=== PATIENT | female | born 1980 | race Caucasian/White ===

== ENCOUNTER 2019-02-17 14:09 | Emergency (ER) | payer SELFPAY ==
--- NOTE | 2019-02-17 15:21 | EDM.PDOC ---
ED HPI GENERAL MEDICAL PROBLEM - General Chief Complaint: Skin Complaint Stated Complaint: INURED RIBS, BLISTERS/RASH Time Seen by Provider: 02/17/19 14:44 Source of Information: Reports: Patient History Limitations: Reports: No Limitations - History of Present Illness INITIAL COMMENTS - FREE TEXT/NARRATIVE: 38-year-old female presents to the ED with a severe painful rash on her right flank which radiates around underneath her right breast to the midline of her chest. States that she fell over a week ago and injured her right lateral ribs and thought this was probably the cause of the pain. However she appreciated the development of a red blister type rash about 4 days ago in her right flank and radiating around to the right chest. Pain is sharp stabbing and burning and is rated as 8 out of 10. Pain is constant and interfering with her sleep. Rash is now losing through her clothing and she is unable to wear her bra at all. She does remember having the chickenpox as a youngster. She reports having pain in her right flank and ribs for about follow 4-5 days before she developed the rash. Onset: Sudden Onset Date: 02/14/19 Duration: Day(s):, Constant, Getting Worse Location: Reports: Chest (Right flank under her right breast to the midline of the chest with blister type rash and severe pain), Back Quality: Reports: Ache, Burning, Stabbing Severity: Severe Improves with: Reports: None (8-9 out of 10) Worsens with: Reports: Other (Certain movements and touch makes it much worse.) Context: Denies: Activity, Exercise, Lifting, Sick Contact, Trauma Associated Symptoms: Reports: Chest Pain, Loss of Appetite, Malaise, Other ( Disrupted sleep due to the constant pain.). 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, NSAIDS (Motrin as well.) Right Chest Pain Score (Numeric/FACES): 9 - Related Data Allergies Allergy/AdvReac Type Severity Reaction Status Date / Time No Known Allergies Allergy Verified 02/17/19 14:46 Home Meds: Home Meds oxyCODONE HCl/Acetaminophen [Percocet 5-325 mg Tablet] 1 - 2 each PO Q4H PRN # 24 tablet 02/17/19 [Rx] valACYclovir [Valtrex] 1,000 mg PO TID #21 tab 02/17/19 [Rx] Past Medical History - Past Health History Medical/Surgical History: Denies Medical/Surgical History Social & Family History - Tobacco Use Smoking Status *Q: Current Every Day Smoker Years of Tobacco use: 15 Packs/Tins Daily: 0.5 - Caffeine Use Caffeine Use: Reports: Coffee, Tea - Recreational Drug Use Recreational Drug Use: No - Living Situation & Occupation Living situation: Reports: Single Occupation: Unemployed ED ROS GENERAL - Review of Systems Review Of Systems: See Below Constitutional: Reports: Malaise, Weakness, Fatigue, Decreased Appetite. Denies : Fever, Chills HEENT: Reports: No Symptoms Respiratory: Reports: Other. Denies: Shortness of Breath, Wheezing, Pleuritic Chest Pain, Cough, Sputum Cardiovascular: Reports: No Symptoms (Right lateral rib pain from a fall 10 days ago) Endocrine: Reports: No Symptoms GI/Abdominal: Reports: No Symptoms : Reports: No Symptoms Musculoskeletal: Reports: Back Pain (Right flank pain rating around under her right breast to the midline of the sternum.) Skin: Reports: Rash (Rash right flank and rating around the right chest under the right breast and to the sternum.) Neurological: Reports: Paresthesia (Areas of hyper sensitive to touch.) Psychiatric: Reports: No Symptoms Hematologic/Lymphatic: Reports: No Symptoms Immunologic: Reports: No Symptoms ED EXAM, SKIN/RASH Exam: See Below Exam Limited By: No Limitations General Appearance: Alert, Moderate Distress, Other (Vital signs are normal although blood pressure is mildly elevated initially but came down with time) Eye Exam: Bilateral Eye: Normal Inspection Respiratory/Chest: No Respiratory Distress, Lungs Clear, Normal Breath Sounds, No Accessory Muscle Use, Other (He is tender to palpation of ribs 910 and 11 at the posterior angle of a posterior axillary line without any crepitus or subcutaneous emphysema. There is also no bruising in this area) Cardiovascular: Normal Peripheral Pulses, Regular Rate, Rhythm, No Edema, No Gallop, No Murmur, No Rub Back Exam: Other ( has shingles in the distribution of thoracic 5,6 and 7th dermatome right flank then the rash spreads around underneath her right breast to the midline of the sternum.) Extremities: Normal Inspection, Normal Range of Motion, Non-Tender, No Pedal Edema Neurological: Alert, Oriented, CN II-XII Intact, Normal Cognition, Normal Gait Psychiatric: Anxious Skin: Warm, Dry, Zoster-Like Rash (Has shingles in the right ,sixth , seventh and eigth dermatomes) Location, Skin: Chest (Under her right breast and involving the lower aspect of the breast to the sternum.), Back (Right flank area mid back) Characteristics: Confluent, Vesicular, Erythematous Associated features: Tenderness (Extremely tender to touch), Inflammation, Weeping Course - Vital Signs Last Recorded V/S: Last Vital Signs Temp 36.8 C 02/17/19 14:43 Pulse 83 02/17/19 14:43 Resp 16 02/17/19 14:43 BP 129/103 H 02/17/19 14:43 Pulse Ox 100 02/17/19 14:43 - Radiology Interpretation Free Text/Narrative:: 38-year-old female presents to the ED due to painful rash on her right back rating around underneath the right breast of the sternum that started about 4 days ago. Prior to this she was having pain in her right lateral ribs and back for about 4-5 days. Examination confirms shingles in the sixth, seventh and eighth dermatomes. Although it's been 4 days since onset of the rash I will place her on valacyclovir 1 g 3 times a day for one week. Given Percocet tabs 5/ 325 mg one or 2 every 4-6 hours necessary for pain relief 20 tablets. She will wear a cotton T-shirt and change it every 12 hours as long as the vesicles or losing. Rise to stay away from all small children and no elderly people. The person that she is with has had the vaccination against herpes zoster. Departure - Departure Time of Disposition: 15:12 Disposition: Home, Self-Care 01 Condition: Fair Clinical Impression: Herpes zoster Qualifiers: Herpes zoster complications: without complications Qualified Code(s): B02.9 - Zoster without complications - Discharge Information *PRESCRIPTION DRUG MONITORING PROGRAM REVIEWED*: Not Applicable *COPY OF PRESCRIPTION DRUG MONITORING REPORT IN PATIENT NICHOLAS: Not Applicable Prescriptions: oxyCODONE HCl/Acetaminophen [Percocet 5-325 mg Tablet] 1 - 2 each PO Q4H PRN # 24 tablet PRN Reason: pain relief. valACYclovir [Valtrex] 1,000 mg PO TID #21 tab Instructions: Shingles, [id number] Referrals: PCP,None [Primary Care Provider] - Forms: ED Department Discharge Additional Instructions: Evaluation in the emergency him today in regards to a rash that you have developed in your mid back and radiates around the front under your breast to the sternum. Examination confirms this is herpes zoster or shingles outbreak. This is caused by the chickenpox virus that has remained in your nervous system since you had chickenpox. We never know what causes it to break out but can be from excessive stress, lack of sleep or other illnesses. Treatment is to keep the area covered until it's finished oozing as this is the contagious. Were the virus can be shed to other people. Is wearing a cotton white T-shirt and changing it every 12 hours. Since the rash is already 4 days old usually the rash continues to break out for a period of one week and then starts to crust over and scabbed over. It will take at least 3 weeks for all the scabs to dissipate from the wound and after this will leave skin pigmented and scarred for up to a year or more. Treatment is antiviral medication fell sick L[place]re 1 g 3 times daily for the next week in the hopes of speeding up recovery from this illness as well as preventing long-term pain along the ribs. Pain medication Percocet 5/325 milligrams one or 2 every 4-6 hours needed for pain relief. If you are prone to constipation this medicine lots to cause constipation. Suggest MiraLAX powder 17 g once daily to prevent constipation while on the stronger pain medication. You can also take Motrin 600 mg every 6 hours to help reduce pain and inflammation as well.
== END 2019-02-17 15:30 | disposition home or self-care (01) ==
LOC: JD.ED 14:09
DX: B02.9 Zoster without complications (principal); F17.210 Nicotine dependence, cigarettes, uncomplicated
CPT/HCPCS: 99282; 99283

== ENCOUNTER 2019-03-16 21:55 | Emergency (ER) | payer MEDICAID ==
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
[2019-03-17] MEDS ORDERED: Acetaminophen 325 MG Tab PO ONE (00:15)
--- NOTE | 2019-03-17 06:51 | CT ---
Head CT Technique: Multiple axial sections through the brain were obtained. Intravenous contrast was not utilized. Limitations: Motion artifact noted on the base cuts. Comparison: No prior intracranial imaging. Findings: Ventricles along the basal cisterns and sulci over the convexities are within normal limits for the patient's age. No abnormal parenchymal densities are seen. No evidence of intracranial hemorrhage. No midline shift or mass effect is seen. Soft tissue hematoma is partially seen within the right forehead scalp and around the right orbit. Bone window settings were reviewed which show no acute calvarial abnormality. Visualized sinuses are clear. Impression: 1. Soft tissue hematoma around the right orbit and within the right frontal scalp. 2. Artifact from motion. 3. Within limitations of motion, no acute intracranial abnormality is appreciated. Diagnostic code #2 I agree with preliminary report from [facility], finalized on 03/17/19, 1:15 AM Central Time
== END 2019-03-17 00:39 | disposition home or self-care (01) ==
LOC: JD.ED 21:55
DX: F10.929 Alcohol use, unspecified with intoxication, unspecified (principal); S40.812A Abrasion of left upper arm, initial encounter; S40.811A Abrasion of right upper arm, initial encounter; S80.212A Abrasion, left knee, initial encounter; S80.211A Abrasion, right knee, initial encounter; S30.811A Abrasion of abdominal wall, initial encounter; S20.419A Abrasion of unspecified back wall of thorax, initial encounter; S00.81XA Abrasion of other part of head, initial encounter; S20.311A Abrasion of right front wall of thorax, initial encounter; S80.812A Abrasion, left lower leg, initial encounter; S80.811A Abrasion, right lower leg, initial encounter; F17.210 Nicotine dependence, cigarettes, uncomplicated; Y90.8 Blood alcohol level of 240 mg/100 ml or more; W22.8XXA Striking against or struck by other objects, initial encounter
CPT/HCPCS: 36415; 70450; 80053; 84703; 85025; 99284; A9270; G0480; 99283

== ENCOUNTER 2019-04-07 15:16 | Emergency (ER) | payer MEDICAID ==
[2019-04-07] MEDS ORDERED: LORazepam 1 MG Tab PO STA (17:30)
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
[2019-04-07] MEDS ORDERED: Azithromycin 250 MG Tab PO ONE (18:09)
[2019-04-07] MEDS ORDERED: cefTRIAXone 250 MG, Lidocaine 1% 0.5 ML IM SCH ×2 (18:15)
[2019-04-07 19:46] LABS: C. TRACHOMATIS BY PCR NOT DETECTED
[2019-04-07 19:55] LABS: N. GONORRHOEAE BY PCR NOT DETECTED
== END 2019-04-07 18:32 | disposition home or self-care (01) ==
LOC: JD.ED 15:16
DX: N39.0 Urinary tract infection, site not specified (principal)
CPT/HCPCS: 81001; 81025; 87086; 87088; 87186; 87491; 87591; 96372; 99283; A9270; J0696; J2001

== ENCOUNTER 2019-04-17 16:35 | Emergency (ER) | payer MEDICAID ==
[2019-04-17] MEDS ORDERED: Thiamine 200 MG/2 ML MDV IVPUSH ONE (17:58)
[2019-04-17] MEDS ORDERED: Sodium Chloride 0.9% 10 ML Syringe FLUSH PRN (17:58)
[2019-04-17] MEDS ORDERED: Sodium Chloride 0.9% 1,000 ML IV ONE ×2 (17:58→20:31)
[2019-04-17] MEDS ORDERED: Ondansetron 4 MG/2 ML SDV IVPUSH ONE (18:03)
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
[2019-04-17 21:33] LABS: ACETAMINOPHEN 0 ug/mL (10-30)
--- NOTE | 2019-04-18 10:16 | CT ---
Head CT Technique: Multiple axial sections through the brain were obtained. Intravenous contrast was not utilized. Comparison: Prior head CT study of 03/16/19. Findings: Ventricles along with basal cisterns and sulci over the convexities are within normal limits for the patient's age. No abnormal parenchymal densities are seen. No evidence of intracranial hemorrhage. No midline shift or mass effect is seen. Bone window settings were reviewed which show no acute calvarial abnormality. Visualized sinuses show nothing acute. When compared to prior head CT study, previous soft tissue swelling around the right orbit has resolved. Impression: 1. Nothing acute is identified on noncontrast head CT study. Diagnostic code #1 I agree with preliminary report from [facility], finalized on 04/17/19, 8:52 PM Central Time
== END 2019-04-17 21:56 | disposition home or self-care (01) ==
LOC: JD.ED 16:35
DX: F10.129 Alcohol abuse with intoxication, unspecified (principal); S00.83XA Contusion of other part of head, initial encounter; Y90.3 Blood alcohol level of 60-79 mg/100 ml; F17.210 Nicotine dependence, cigarettes, uncomplicated
CPT/HCPCS: 36415; 70450; 80053; 80306; 81001; 81025; 85007; 85027; 85610; 96361; 96374; 96375; 99284; G0480; J2405; J3411; J7040; 99283

== ENCOUNTER 2019-08-07 16:15 | Emergency (ER) | payer MEDICAID ==
--- NOTE | 2019-08-07 16:56 | EDM.PDOC ---
ED HPI GENERAL MEDICAL PROBLEM - General Chief Complaint: ENT Problem Stated Complaint: CONGESTION AND COUGH Time Seen by Provider: 08/07/19 16:35 Source of Information: Reports: Patient History Limitations: Reports: No Limitations - History of Present Illness INITIAL COMMENTS - FREE TEXT/NARRATIVE: 38-year-old female presents for evaluation and treatment of cough and congestion. Reports she's been ill for the last 3 days. Currently complains of a productive cough, subjective fevers, chills, weakness, malaise, chest pain and posttussive emesis. She denies any ear pain or sore throat. Denies any ill contacts. Reports that she's been ill with pneumonia before and feels that this is similar. No PCP. Chest Pain Score (Numeric/FACES): 10 - Related Data Allergies Allergy/AdvReac Type Severity Reaction Status Date / Time No Known Allergies Allergy Verified 08/07/19 16:22 Home Meds: Home Meds Benzonatate [Tessalon Perle] 100 mg PO TID PRN #15 capsule 08/07/19 [Rx] Past Medical History - Past Health History Medical/Surgical History: Denies Medical/Surgical History Genitourinary History: Reports: UTI, Recurrent - Infectious Disease History Infectious Disease History: Reports: Hepatitis C Other Infectious Disease History: iv drug use- Social & Family History - Family History Family Medical History: Noncontributory - Tobacco Use Smoking Status *Q: Current Every Day Smoker Years of Tobacco use: 20 Packs/Tins Daily: 1 - Caffeine Use Caffeine Use: Reports: Coffee, Energy Drinks, Soda - Alcohol Use Days Per Week of Alcohol Use: 7 Number of Drinks Per Day: 2 Total Drinks Per Week: 14 - Recreational Drug Use Recreational Drug Use: No - Living Situation & Occupation Living situation: Reports: Single Occupation: Unemployed ED ROS GENERAL - Review of Systems Review Of Systems: See Below Constitutional: Reports: Fever (subjective), Chills, Malaise, Weakness, Fatigue HEENT: Denies: Ear Pain, Throat Pain Respiratory: Reports: Cough, Sputum Cardiovascular: Reports: Chest Pain GI/Abdominal: Reports: Vomiting (post tussive) Neurological: Reports: Headache ED EXAM, GENERAL - Physical Exam Exam: See Below Exam Limited By: No Limitations General Appearance: Alert, WD/WN, No Apparent Distress Eye Exam: Bilateral Eye: Normal Inspection Ears: Normal External Exam, Normal Canal, Hearing Grossly Normal, Normal TMs Nose: Normal Inspection Throat/Mouth: Normal Inspection, Normal Lips, Normal Oropharynx, Normal Voice, No Airway Compromise Neck: Normal Inspection Respiratory/Chest: No Respiratory Distress, Lungs Clear, Normal Breath Sounds Cardiovascular: Normal Peripheral Pulses, Regular Rate, Rhythm, No Murmur GI/Abdominal: Soft, Non-Tender Neurological: Alert, Oriented, Normal Cognition Psychiatric: Normal Affect, Normal Mood Skin Exam: Warm, Dry, Normal Color Course - Vital Signs Last Recorded V/S: Last Vital Signs Temp 97.4 F 08/07/19 16:22 Pulse 100 08/07/19 16:22 Resp 20 08/07/19 16:22 BP 98/75 08/07/19 16:22 Pulse Ox 100 08/07/19 16:22 - Orders/Labs/Meds Orders: Active Orders 24 hr Category Date Time Status Chest 2V [CR] Stat Exams 08/07/19 16:44 Taken - Radiology Interpretation Free Text/Narrative:: chest xray shows no acute intrathoracic process. - Re-Assessments/Exams Free Text/Narrative Re-Assessment/Exam: 08/07/19 17:30 Reviewed the x-ray with the patient. Appears to be viral upper respiratory. She is requesting cough syrup with codeine. I will give her some Tessalon Perles. Discharge instructions his document. Departure - Departure Time of Disposition: 17:31 Disposition: Home, Self-Care 01 Condition: Good Clinical Impression: Viral upper respiratory illness - Discharge Information *PRESCRIPTION DRUG MONITORING PROGRAM REVIEWED*: No *COPY OF PRESCRIPTION DRUG MONITORING REPORT IN PATIENT NICHOLAS: No Prescriptions: Benzonatate [Tessalon Perle] 100 mg PO TID PRN #15 capsule PRN Reason: Cough Instructions: Upper Respiratory Infection, Adult, [id number] Referrals: PCP,None [Primary Care Provider] - Forms: ED Department Discharge Additional Instructions: Tessalon Perles 1 and 2 caps 3 times a day as needed for cough. [id number] Tylenol or Motrin as needed headaches and discomfort. make sure you are drinking plenty of fluids. Follow up with primary care provider if not much better in 1-2 weeks. Please return the ER if your symptoms change or worsen. - My Orders Last 24 Hours: My Active Orders 08/07/19 16:44 Chest 2V [CR] Stat - Assessment/Plan Last 24 Hours: My Active Orders 08/07/19 16:44 Chest 2V [CR] Stat
--- NOTE | 2019-08-08 07:10 | CR ---
Chest: Two views of the chest were obtained. Comparison: No prior chest x-ray. Slight scarring or atelectasis is seen anteriorly within the right upper lung. Minimal tenting of the left hemidiaphragm is noted. Lungs otherwise show no acute parenchymal change. Bony structures appear within normal limits for the patient's age. Impression: 1. Findings most likely incidental as described above. Nothing acute is otherwise seen. Diagnostic code #2
== END 2019-08-07 17:39 | disposition home or self-care (01) ==
LOC: JD.ED 16:15
DX: J39.9 Disease of upper respiratory tract, unspecified (principal); B97.89 Other viral agents as the cause of diseases classified elsewhere; F17.210 Nicotine dependence, cigarettes, uncomplicated; Z79.899 Other long term (current) drug therapy
CPT/HCPCS: 71046; 71046-26; 99283-25

== ENCOUNTER 2019-08-31 21:18 | Emergency (ER) | payer MEDICAID ==
[2019-08-31] MEDS ORDERED: Ondansetron 4 MG/2 ML SDV IVPUSH ONE (21:44)
[2019-08-31] MEDS ORDERED: Sodium Chloride 0.9% 10 ML Syringe FLUSH PRN (21:44)
[2019-08-31] MEDS ORDERED: Sodium Chloride 0.9% 1,000 ML IV STA (21:44)
[2019-08-31] MEDS ORDERED: HYDROmorphone 1 MG/ML Syringe IVPUSH ONE (21:46)
--- NOTE | 2019-08-31 21:52 | EDM.PDOC ---
ED HPI GENERAL MEDICAL PROBLEM - General Chief Complaint: Abdominal Pain Stated Complaint: LIVER PAIN AND FEVER Time Seen by Provider: 08/31/19 21:29 Source of Information: Reports: Patient History Limitations: Reports: No Limitations - History of Present Illness INITIAL COMMENTS - FREE TEXT/NARRATIVE: The patient presents with RUQ abdominal pain and fever. She had this pain for about 2 weeks off and on. She also had a temp on and off for about a week. She has chills, cough, chest pain, shortness of breath, nausea and vomiting She says about a year ago she was diagnosed with Hepatitis C. She has no dysuria. She says she is a heavy drinker and just quit yesterday. She says she did have endocarditis in the past. Onset: Gradual Duration: Week(s): Location: Reports: Abdomen Quality: Reports: Sharp Severity: Moderate Improves with: Reports: None Worsens with: Reports: None Associated Symptoms: Reports: Chest Pain, Cough, Fever/Chills, Headaches, Nausea /Vomiting, Shortness of Breath Right Upper Abdomen Pain Score (Numeric/FACES): 8 - Related Data Allergies Allergy/AdvReac Type Severity Reaction Status Date / Time No Known Allergies Allergy Verified 08/07/19 16:22 Home Meds: Home Meds Benzonatate [Tessalon Perle] 100 mg PO TID PRN #15 capsule 08/07/19 [Rx] Cephalexin [Keflex] 500 mg PO BID #20 capsule 09/01/19 [Rx] Hydrocodone/Acetaminophen [Hydrocodon-Acetaminophn 10-325] 1 each PO Q6HR PRN # 10 tablet 09/01/19 [Rx] Past Medical History - Past Health History Medical/Surgical History: Denies Medical/Surgical History Cardiovascular History: Reports: Other (See Below) Other Cardiovascular History: Endocarditis Genitourinary History: Reports: UTI, Recurrent Musculoskeletal History: Reports: Fracture Neurological History: Reports: MS Psychiatric History: Reports: Addiction - Infectious Disease History Infectious Disease History: Reports: Hepatitis C Other Infectious Disease History: iv drug use- Social & Family History - Family History Family Medical History: Noncontributory - Tobacco Use Smoking Status *Q: Current Every Day Smoker Years of Tobacco use: 21 Packs/Tins Daily: 0.5 Used Tobacco, but Quit: No - Caffeine Use Caffeine Use: Reports: Coffee, Energy Drinks, Soda - Alcohol Use Days Per Week of Alcohol Use: 7 Number of Drinks Per Day: 20 Total Drinks Per Week: 140 Date of Last Drink: 08/30/19 Time of Last Drink: 10:00 - Recreational Drug Use Recreational Drug Use: Yes Drug Use in Last 12 Months: Yes Recreational Drug Type: Reports: Marijuana/Hashish, Other (see below) Other Recreational Drug Type: opiates Recreational Drug Use Frequency: Weekly - Living Situation & Occupation Living situation: Reports: Single Occupation: Unemployed ED ROS GENERAL - Review of Systems Review Of Systems: See Below Constitutional: Reports: Fever, Chills HEENT: Reports: No Symptoms Respiratory: Reports: Shortness of Breath Cardiovascular: Reports: Chest Pain Endocrine: Reports: No Symptoms GI/Abdominal: Reports: Abdominal Pain, Nausea, Vomiting. Denies: Diarrhea : Reports: No Symptoms Musculoskeletal: Reports: No Symptoms Skin: Reports: No Symptoms ED EXAM, GI/ABD - Physical Exam Exam: See Below Exam Limited By: No Limitations General Appearance: Alert, No Apparent Distress Ears: Normal External Exam Nose: Normal Inspection Head: Atraumatic, Normocephalic Neck: Normal Inspection Respiratory/Chest: No Respiratory Distress, Lungs Clear, Normal Breath Sounds Cardiovascular: Regular Rate, Rhythm, No Edema, No Murmur GI/Abdominal Exam: Soft, No Organomegaly, No Mass, Tender (Mild tenderness to the RUQ) Course - Vital Signs Last Recorded V/S: Last Vital Signs Temp 99.2 F 08/31/19 21:28 Pulse 117 H 08/31/19 21:28 Resp 18 08/31/19 21:28 BP 102/68 08/31/19 21:28 Pulse Ox 100 08/31/19 21:28 - Orders/Labs/Meds Orders: Active Orders 24 hr Category Date Time Status Peripheral IV Care [RC] . DIRECTED Care 08/31/19 21:45 Active Abdomen Pelvis w Cont [CT] Stat Exams 08/31/19 23:07 Taken CULTURE BLOOD [BC] Stat Lab 08/31/19 23:20 Received CULTURE BLOOD [BC] Stat Lab 08/31/19 23:30 Received Sodium Chloride 0.9% [Saline Flush] Med 08/31/19 21:44 Active 10 ml FLUSH ASDIRECTED PRN Blood Culture x2 Reflex Set [OM.PC] Stat Oth 10/16/19 23:06 Ordered ED Antiemetic Medication Reflex [OM.PC] Stat Oth 08/31/19 21:45 Ordered Peripheral IV Insertion Adult [OM.PC] Stat Oth 08/31/19 21:44 Ordered Medication Orders Sodium Chloride (Saline Flush) 10 ml FLUSH ASDIRECTED PRN PRN Reason: Keep Vein Open Last Admin: 08/31/19 22:14 Dose: 10 ml Labs: Laboratory Tests 08/31/19 08/31/19 08/31/19 Range/Units 22:09 22:09 22:09 WBC 18.18 H (3.98-10.04) K/mm3 RBC 4.07 (3.98-5.22) M/mm3 Hgb 11.1 L D (11.2-15.7) gm/dl Hct 34.4 (34.1-44.9) % MCV 84.5 (79.4-94.8) fl MCH 27.3 (25.6-32.2) pg MCHC 32.3 (32.2-35.5) g/dl RDW Std Deviation 48.4 H (36.4-46.3) fL Plt Count 204 (182-369) K/mm3 MPV 9.5 (9.4-12.3) fl Neut % (Auto) 85.4 H (34.0-71.1) % Lymph % (Auto) 4.7 L (19.3-51.7) % [place] % (Auto) 8.9 (4.7-12.5) % Eos % (Auto) 0.3 L (0.7-5.8) Baso % (Auto) 0.1 (0.1-1.2) % Neut # (Auto) 15.53 H (1.56-6.13) K/mm3 Lymph # (Auto) 0.86 L (1.18-3.74) K/mm3 [place] # (Auto) 1.61 H (0.24-0.36) K/mm3 Eos # (Auto) 0.05 (0.04-0.36) K/mm3 Baso # (Auto) 0.02 (0.01-0.08) K/mm3 Manual Slide Review Abnormal smear Sodium 137 (136-145) mEq/L Potassium 3.3 L (3.5-5.1) mEq/L Chloride 102 (98-107) mEq/L Carbon Dioxide 28 (21-32) mEq/L Anion Gap 10.3 (5-15) BUN 24 H (7-18) mg/dL Creatinine 1.4 H (0.55-1.02) mg/dL Est Cr Clr Drug Dosing 53.50 mL/min Estimated GFR (MDRD) 42 (>60) mL/min BUN/Creatinine Ratio 17.1 (14-18) Glucose 112 H (74-106) mg/dL Lactic Acid (0.4-2.0) mmol/L Calcium 7.9 L (8.5-10.1) mg/dL Magnesium 1.6 L (1.8-2.4) mg/dl Total Bilirubin 0.3 (0.2-1.0) mg/dL AST 37 (15-37) U/L ALT 40 (14-59) U/L Alkaline Phosphatase 160 H (46-116) U/L C-Reactive Protein 32.8 H* (<1.0) mg/dL Total Protein 6.0 L (6.4-8.2) g/dl Albumin 2.1 L (3.4-5.0) g/dl Globulin 3.9 gm/dL Albumin/Globulin Ratio 0.5 L (1-2) Lipase 43 L (73-393) U/L HCG, Qual Negative (NEGATIVE) Urine Color (Yellow) Urine Appearance (Clear) Urine pH (5.0-8.0) Ur Specific [place] (1.005-1.030) Urine Protein (Negative) Urine Glucose (UA) (Negative) Urine Ketones (Negative) Urine Occult Blood (Negative) Urine Nitrite (Negative) Urine Bilirubin (Negative) Urine Urobilinogen (0.2-1.0) Ur Leukocyte Esterase (Negative) Urine RBC (0-5) /hpf Urine WBC (0-5) /hpf Ur Squamous Epith Cells (0-5) /hpf Urine Bacteria (FEW) /hpf Urine Mucus (FEW) /hpf Urine Yeast (Budding) (NOT SEEN) Ethyl Alcohol 0.00 (0.00) gm% 08/31/19 08/31/19 Range/Units 22:15 23:20 WBC (3.98-10.04) K/mm3 RBC (3.98-5.22) M/mm3 Hgb (11.2-15.7) gm/dl Hct (34.1-44.9) % MCV (79.4-94.8) fl MCH (25.6-32.2) pg MCHC (32.2-35.5) g/dl RDW Std Deviation (36.4-46.3) fL Plt Count (182-369) K/mm3 MPV (9.4-12.3) fl Neut % (Auto) (34.0-71.1) % Lymph % (Auto) (19.3-51.7) % [place] % (Auto) (4.7-12.5) % Eos % (Auto) (0.7-5.8) Baso % (Auto) (0.1-1.2) % Neut # (Auto) (1.56-6.13) K/mm3 Lymph # (Auto) (1.18-3.74) K/mm3 [place] # (Auto) (0.24-0.36) K/mm3 Eos # (Auto) (0.04-0.36) K/mm3 Baso # (Auto) (0.01-0.08) K/mm3 Manual Slide Review Sodium (136-145) mEq/L Potassium (3.5-5.1) mEq/L Chloride (98-107) mEq/L Carbon Dioxide (21-32) mEq/L Anion Gap (5-15) BUN (7-18) mg/dL Creatinine (0.55-1.02) mg/dL Est Cr Clr Drug Dosing mL/min Estimated GFR (MDRD) (>60) mL/min BUN/Creatinine Ratio (14-18) Glucose (74-106) mg/dL Lactic Acid 1.1 (0.4-2.0) mmol/L Calcium (8.5-10.1) mg/dL Magnesium (1.8-2.4) mg/dl Total Bilirubin (0.2-1.0) mg/dL AST (15-37) U/L ALT (14-59) U/L Alkaline Phosphatase (46-116) U/L C-Reactive Protein (<1.0) mg/dL Total Protein (6.4-8.2) g/dl Albumin (3.4-5.0) g/dl Globulin gm/dL Albumin/Globulin Ratio (1-2) Lipase (73-393) U/L HCG, Qual (NEGATIVE) Urine Color Yellow (Yellow) Urine Appearance Cloudy H (Clear) Urine pH 6.0 (5.0-8.0) Ur Specific [place] 1.020 (1.005-1.030) Urine Protein 3+ H (Negative) Urine Glucose (UA) Negative (Negative) Urine Ketones Negative (Negative) Urine Occult Blood 2+ H (Negative) Urine Nitrite Positive H (Negative) Urine Bilirubin Negative (Negative) Urine Urobilinogen 4.0 H (0.2-1.0) Ur Leukocyte Esterase 1+ H (Negative) Urine RBC 10-20 H (0-5) /hpf Urine WBC 75-100 H (0-5) /hpf Ur Squamous Epith Cells 5-10 H (0-5) /hpf Urine Bacteria Many H (FEW) /hpf Urine Mucus Few (FEW) /hpf Urine Yeast (Budding) Few H (NOT SEEN) Ethyl Alcohol (0.00) gm% Meds: Medications Generic Name Dose Route Start Last Admin Trade Name Freq PRN Reason Stop Dose Admin Sodium Chloride 10 ml 08/31/19 21:44 08/31/19 22:14 Saline Flush FLUSH 10 ml ASDIRECTED PRN Administration Keep Vein Open Discontinued Medications Generic Name Dose Route Start Last Admin Trade Name Freq PRN Reason Stop Dose Admin Famotidine 20 mg 08/31/19 23:46 08/31/19 23:49 Pepcid IVPUSH 08/31/19 23:47 20 mg ONETIME ONE Administration Hydromorphone HCl 1 mg 08/31/19 21:46 08/31/19 22:13 Dilaudid IVPUSH 08/31/19 21:47 1 mg ONETIME ONE Administration Sodium Chloride 1,000 mls @ 1,000 mls/hr 08/31/19 21:44 08/31/19 22:12 Normal Saline IV 08/31/19 22:43 1,000 mls/hr .BOLUS STA Administration Ceftriaxone Sodium 2 gm/ 100 mls @ 200 mls/hr 08/31/19 23:06 08/31/19 23:36 Sodium Chloride IV 08/31/19 23:35 200 mls/hr ONETIME ONE Administration Sodium Chloride 1,000 mls @ 1,000 mls/hr 08/31/19 23:08 08/31/19 23:16 Normal Saline IV 09/01/19 00:07 1,000 mls/hr ONETIME ONE Administration Ondansetron HCl 4 mg 08/31/19 21:44 08/31/19 22:12 Zofran IVPUSH 08/31/19 21:45 4 mg ONETIME ONE Administration - Re-Assessments/Exams Free Text/Narrative Re-Assessment/Exam: 08/31/19 21:52 I ordered an IV NS 1L bolus, zofran 4mg IV, dilaudid 1mg IV, labs and UA. 08/31/19 23:53 Her WBC was elevated at 18.18. Her K was low at 3.3. Her creatinine was elevated at 1.4. Her magnesium was low at 1.6. Her calcium is now at 7.9. Her alk phos is elevated at 160 but her AST and ALT are normal. Her CRP is elevated at 32.8. Her lipase is normal. Her HCG is negative. Her ETOH is 0. Her UA shows a UTI. I have ordered blood cultures, lactic acid, another NS bolus of 1L and a CT of her abdomen and pelvis with IV and oral contrast. 09/01/19 00:[address] shows right perinephric edema could be from pyelonephritis or recently passed stone. Mild splenomegaly. I will get her on some keflex and something for pain. Departure - Departure Time of Disposition: 01:00 Disposition: Home, Self-Care 01 Condition: Good Clinical Impression: UTI (urinary tract infection) Qualifiers: Urinary tract infection type: acute pyelonephritis Qualified Code(s): N10 - Acute pyelonephritis - Discharge Information *PRESCRIPTION DRUG MONITORING PROGRAM REVIEWED*: No *COPY OF PRESCRIPTION DRUG MONITORING REPORT IN PATIENT NICHOLAS: No Prescriptions: Hydrocodone/Acetaminophen [Hydrocodon-Acetaminophn 10-325] 1 each PO Q6HR PRN # 10 tablet PRN Reason: Pain Cephalexin [Keflex] 500 mg PO BID #20 capsule Referrals: PCP,None [Primary Care Provider] - Forms: ED Department Discharge Additional Instructions: Drink plenty of fluids. Take the keflex 2 times per day for 10 days. Take tylenol or motrin for any fever or pain. If that does not help, try the hydorocone. Please return if you are worse. - My Orders Last 24 Hours: My Active Orders 08/31/19 21:44 Sodium Chloride 0.9% [Saline Flush] 10 ml FLUSH ASDIRECTED PRN Peripheral IV Insertion Adult [OM.PC] Stat 08/31/19 21:45 Peripheral IV Care [RC] . DIRECTED ED Antiemetic Medication Reflex [OM.PC] Stat 08/31/19 23:06 Blood Culture x2 Reflex Set [OM.PC] Stat 08/31/19 23:07 Abdomen Pelvis w Cont [CT] Stat 08/31/19 23:20 CULTURE BLOOD [BC] Stat 08/31/19 23:30 CULTURE BLOOD [BC] Stat - Assessment/Plan Last 24 Hours: My Active Orders 08/31/19 21:44 Sodium Chloride 0.9% [Saline Flush] 10 ml FLUSH ASDIRECTED PRN Peripheral IV Insertion Adult [OM.PC] Stat 08/31/19 21:45 Peripheral IV Care [RC] . DIRECTED ED Antiemetic Medication Reflex [OM.PC] Stat 08/31/19 23:06 Blood Culture x2 Reflex Set [OM.PC] Stat 08/31/19 23:07 Abdomen Pelvis w Cont [CT] Stat 08/31/19 23:20 CULTURE BLOOD [BC] Stat 08/31/19 23:30 CULTURE BLOOD [BC] Stat
[2019-08-31] MEDS ORDERED: cefTRIAXone 2 GM in Sodium Chloride 0.9% 100 ML IV ONE (23:06)
[2019-08-31] MEDS ORDERED: Sodium Chloride 0.9% 1,000 ML IV ONE (23:08)
[2019-08-31] MEDS ORDERED: Famotidine 20 MG/2 ML SDV IVPUSH ONE (23:46)
--- NOTE | 2019-09-01 08:19 | CT ---
CT abdomen and pelvis Technique: Multiple axial sections were obtained from above the dome of the diaphragm inferiorly through the pubic symphysis. Intravenous and oral contrast was utilized. Delayed images were also obtained through the bladder. Findings: Haziness around the right kidney with areas of poor enhancement. Findings are suspicious for pyelonephritis. Left kidney shows a cyst within the upper pole measuring 4.3 cm. Delayed images show contrast within the left ureter. No contrast is seen within the right ureter which likely relates to the poor renal function of the right kidney from the infection. Visualized lung bases show nothing acute. Liver shows no focal abnormality. Spleen appears within normal limits. Small amount of contrast is noted within the distal esophagus compatible with mild reflux. No adrenal nodule is seen. Pancreas is within normal limits. Gallbladder contains no calcified gallstones. Aorta shows no aneurysm. No retroperitoneal adenopathy or mesenteric abnormalities are seen. No pelvic mass or adenopathy is seen. No free fluid is seen. Appendix is not definitely visualized. Bone window settings were reviewed which appear within normal limits for the patient's age. Spleen measures at the upper limits of normal with length of 13.1 cm. Impression: 1. Haziness and poor enhancement of the right kidney which is highly suspicious for pyelonephritis. 2. Cyst within the upper left kidney. 3. Spleen measures at the upper limits of normal. Diagnostic code #3 I agree with preliminary report from [facility], finalized on 09/01/19, 1:53 AM Central Time
[2019-09-01] MEDS ORDERED: ALPRAZolam 1 MG Tab PO ONE (21:44)
== END 2019-09-01 01:17 | disposition home or self-care (01) ==
LOC: JD.ED 21:18
DX: N10 Acute pyelonephritis (principal); N39.0 Urinary tract infection, site not specified; F17.210 Nicotine dependence, cigarettes, uncomplicated
CPT/HCPCS: 36415; 74177; 80053; 80320; 81001; 83605; 83690; 83735; 84703; 85025; 86140; 87040; 96361; 96365; 96375; 99284; J0696; J1170; J2405; J3490; J7030; J7040; G0480

== ENCOUNTER 2019-09-04 00:53 | Emergency (ER) | payer MEDICAID ==
--- NOTE | 2019-09-04 01:50 | EDM.PDOC ---
ED HPI GENERAL MEDICAL PROBLEM - General Chief Complaint: Fever Stated Complaint: SWOLLEN LEGS Time Seen by Provider: 09/04/19 01:18 - History of Present Illness INITIAL COMMENTS - FREE TEXT/NARRATIVE: 38-year-old female returns emergency room for IM Rocephin. She supposed to be getting this for a bacteremia thought to be related to pyelonephritis. However she is not getting any better. Patient is having increased swelling he claims to be having fevers and chills. She still has side pain on the right side. She thinks overall her condition is just steadily declined since about the seventh of this month. She states she's been sleeping all day been taking some fluids really hasn't been eating very much. A couple days ago she was started on daily IM Rocephin as her pyelonephritis was not improving on Keflex Headache Pain Score (Numeric/FACES): 10 - Related Data Allergies Allergy/AdvReac Type Severity Reaction Status Date / Time No Known Allergies Allergy Verified 09/04/19 01:03 Home Meds: Home Meds Cephalexin [Keflex] 500 mg PO BID #20 capsule 09/01/19 [Rx] Hydrocodone/Acetaminophen [Hydrocodon-Acetaminophn 10-325] 1 each PO Q6HR PRN # 10 tablet 09/01/19 [Rx] Past Medical History - Past Health History Medical/Surgical History: Denies Medical/Surgical History Cardiovascular History: Reports: Other (See Below) Other Cardiovascular History: Endocarditis Genitourinary History: Reports: UTI, Recurrent Musculoskeletal History: Reports: Fracture Neurological History: Reports: MS Psychiatric History: Reports: Addiction - Infectious Disease History Infectious Disease History: Reports: Hepatitis C Other Infectious Disease History: iv drug use- Social & Family History - Family History Family Medical History: Noncontributory - Tobacco Use Smoking Status *Q: Current Every Day Smoker Years of Tobacco use: 21 Packs/Tins Daily: 0.5 - Caffeine Use Caffeine Use: Reports: None - Recreational Drug Use Recreational Drug Use: No - Living Situation & Occupation Living situation: Reports: Single Occupation: Unemployed ED ROS GENERAL - Review of Systems Review Of Systems: See Below Constitutional: Reports: Fever, Chills, Malaise, Weakness, Fatigue. Denies: No Symptoms HEENT: Reports: No Symptoms Respiratory: Reports: No Symptoms Cardiovascular: Reports: No Symptoms, Palpitations GI/Abdominal: Reports: Abdominal Pain, Nausea. Denies: Constipation, Diarrhea : Reports: Flank Pain, Frequency Musculoskeletal: Reports: No Symptoms Skin: Reports: No Symptoms Neurological: Reports: No Symptoms Psychiatric: Reports: No Symptoms Hematologic/Lymphatic: Reports: No Symptoms Immunologic: Reports: No Symptoms ED EXAM, GENERAL - Physical Exam Exam: See Below Exam Limited By: No Limitations General Appearance: Alert, No Apparent Distress, Other (Is tachycardic tremulous and almost acting like she is stimulant medication) Ear Exam: Right Ear: TM Dull Head: Atraumatic, Normocephalic Neck: Normal Inspection, Supple, Non-Tender, Full Range of Motion. No: Lymphadenopathy (L), Lymphadenopathy (R) Respiratory/Chest: No Respiratory Distress, Lungs Clear, Normal Breath Sounds Cardiovascular: Normal Peripheral Pulses, Regular Rate, Rhythm, No Edema, Tachycardia GI/Abdominal: Normal Bowel Sounds, Soft, Other (He has significant tenderness mostly over the right side mostly upper abdomen) Extremities: Other (She has some pedal edema) Neurological: Alert, Oriented Skin Exam: Warm, Dry, Intact Lymphatic: No Adenopathy Course - Vital Signs Last Recorded V/S: Last Vital Signs Temp 37.9 C 09/04/19 00:59 Pulse 117 H 09/04/19 00:59 Resp 18 09/04/19 00:59 BP 128/88 09/04/19 00:59 Pulse Ox 96 09/04/19 00:59 - Orders/Labs/Meds Orders: Active Orders 24 hr Category Date Time Status CULTURE BLOOD [BC] Stat Lab 09/04/19 02:00 Received CULTURE BLOOD [BC] Stat Lab 09/04/19 02:30 Received Blood Culture x2 Reflex Set [OM.PC] Stat Oth 09/04/19 01:19 Ordered Labs: Laboratory Tests 09/04/19 09/04/19 09/04/19 Range/Units 02:00 02:00 02:00 WBC 13.45 H (3.98-10.04) K/mm3 RBC 3.97 L (3.98-5.22) M/mm3 Hgb 10.7 L (11.2-15.7) gm/dl Hct 33.2 L (34.1-44.9) % MCV 83.6 (79.4-94.8) fl MCH 27.0 (25.6-32.2) pg MCHC 32.2 (32.2-35.5) g/dl RDW Std Deviation 50.8 H (36.4-46.3) fL Plt Count 221 (182-369) K/mm3 MPV 9.1 L (9.4-12.3) fl Neutrophils % (Manual) 74 H (40-60) % Band Neutrophils % 0 (0-10) % Lymphocytes % (Manual) 13 L (20-40) % Atypical Lymphs % 0 % Monocytes % (Manual) 12 H (2-10) % Eosinophils % (Manual) 1 (0.7-5.8) % Basophils % (Manual) 0 L (0.1-1.2) Platelet Estimate Adequate Plt Morphology Comment Normal Hypochromasia 2+ moderate Poikilocytosis 1+ slight Anisocytosis 1+ slight Sodium 136 (136-145) mEq/L Potassium 3.5 (3.5-5.1) mEq/L Chloride 100 (98-107) mEq/L Carbon Dioxide 31 (21-32) mEq/L Anion Gap 8.5 (5-15) BUN 13 (7-18) mg/dL Creatinine 1.1 H (0.55-1.02) mg/dL Est Cr Clr Drug Dosing 68.09 mL/min Estimated GFR (MDRD) 56 (>60) mL/min BUN/Creatinine Ratio 11.8 L (14-18) Glucose 96 (74-106) mg/dL Lactic Acid 1.3 (0.4-2.0) mmol/L Calcium 8.4 L (8.5-10.1) mg/dL Total Bilirubin 0.3 (0.2-1.0) mg/dL AST 25 (15-37) U/L ALT 29 (14-59) U/L Alkaline Phosphatase 169 H (46-116) U/L Total Protein 7.1 (6.4-8.2) g/dl Albumin 2.2 L (3.4-5.0) g/dl Globulin 4.9 gm/dL Albumin/Globulin Ratio 0.5 L (1-2) Urine Color (Yellow) Urine Appearance (Clear) Urine pH (5.0-8.0) Ur Specific [place] (1.005-1.030) Urine Protein (Negative) Urine Glucose (UA) (Negative) Urine Ketones (Negative) Urine Occult Blood (Negative) Urine Nitrite (Negative) Urine Bilirubin (Negative) Urine Urobilinogen (0.2-1.0) Ur Leukocyte Esterase (Negative) Urine RBC (0-5) /hpf Urine WBC (0-5) /hpf Ur Epithelial Cells (0-5) /hpf Urine Bacteria (FEW) /hpf Urine Mucus (FEW) /hpf Urine HCG, Qual (NEGATIVE) Urine Opiates Screen (SVFPAZ=232) Ur Buprenorphine Scrn (CUTOFF=10) Ur Oxycodone Screen (WIH1HM=091) Urine Methadone Screen (OLENZC=154) Ur Propoxyphene Screen (DBBSJG=847) Ur Barbiturates Screen (GZXLKX=803) Ur Tricyclics Screen (YCERPY=209) Ur Phencyclidine Scrn (CUTOFF=25) Ur Amphetamine Screen (WLDPFA=304) U Methamphetamines Scrn (BKFIGV=775) U Benzodiazepines Scrn (BROWLS=834) U Cocaine Metab Screen (ZISQDT=849) U Marijuana (THC) Screen (CUTOFF=50) Ethyl Alcohol (0.00) gm% 09/04/19 09/04/19 09/04/19 Range/Units 02:00 03:30 03:30 WBC (3.98-10.04) K/mm3 RBC (3.98-5.22) M/mm3 Hgb (11.2-15.7) gm/dl Hct (34.1-44.9) % MCV (79.4-94.8) fl MCH (25.6-32.2) pg MCHC (32.2-35.5) g/dl RDW Std Deviation (36.4-46.3) fL Plt Count (182-369) K/mm3 MPV (9.4-12.3) fl Neutrophils % (Manual) (40-60) % Band Neutrophils % (0-10) % Lymphocytes % (Manual) (20-40) % Atypical Lymphs % % Monocytes % (Manual) (2-10) % Eosinophils % (Manual) (0.7-5.8) % Basophils % (Manual) (0.1-1.2) Platelet Estimate Plt Morphology Comment Hypochromasia Poikilocytosis Anisocytosis Sodium (136-145) mEq/L Potassium (3.5-5.1) mEq/L Chloride (98-107) mEq/L Carbon Dioxide (21-32) mEq/L Anion Gap (5-15) BUN (7-18) mg/dL Creatinine (0.55-1.02) mg/dL Est Cr Clr Drug Dosing mL/min Estimated GFR (MDRD) (>60) mL/min BUN/Creatinine Ratio (14-18) Glucose (74-106) mg/dL Lactic Acid (0.4-2.0) mmol/L Calcium (8.5-10.1) mg/dL Total Bilirubin (0.2-1.0) mg/dL AST (15-37) U/L ALT (14-59) U/L Alkaline Phosphatase (46-116) U/L Total Protein (6.4-8.2) g/dl Albumin (3.4-5.0) g/dl Globulin gm/dL Albumin/Globulin Ratio (1-2) Urine Color Yellow (Yellow) Urine Appearance Clear (Clear) Urine pH 6.0 (5.0-8.0) Ur Specific [place] 1.025 (1.005-1.030) Urine Protein 2+ H (Negative) Urine Glucose (UA) Negative (Negative) Urine Ketones Negative (Negative) Urine Occult Blood 3+ H (Negative) Urine Nitrite Negative (Negative) Urine Bilirubin Negative (Negative) Urine Urobilinogen 0.2 (0.2-1.0) Ur Leukocyte Esterase Trace H (Negative) Urine RBC 10-20 H (0-5) /hpf Urine WBC 10-20 H (0-5) /hpf Ur Epithelial Cells 0-5 (0-5) /hpf Urine Bacteria Few (FEW) /hpf Urine Mucus Not seen (FEW) /hpf Urine HCG, Qual Negative (NEGATIVE) Urine Opiates Screen (KTCKEX=428) Ur Buprenorphine Scrn (CUTOFF=10) Ur Oxycodone Screen (HYL6AA=225) Urine Methadone Screen (VJQYHZ=399) Ur Propoxyphene Screen (YRWNRJ=275) Ur Barbiturates Screen (DCYYHR=375) Ur Tricyclics Screen (PVVKTR=113) Ur Phencyclidine Scrn (CUTOFF=25) Ur Amphetamine Screen (DOTNUC=996) U Methamphetamines Scrn (QXQLFZ=182) U Benzodiazepines Scrn (DPFHYT=244) U Cocaine Metab Screen (DHKLMX=895) U Marijuana (THC) Screen (CUTOFF=50) Ethyl Alcohol 0.00 (0.00) gm% 09/04/19 Range/Units 03:30 WBC (3.98-10.04) K/mm3 RBC (3.98-5.22) M/mm3 Hgb (11.2-15.7) gm/dl Hct (34.1-44.9) % MCV (79.4-94.8) fl MCH (25.6-32.2) pg MCHC (32.2-35.5) g/dl RDW Std Deviation (36.4-46.3) fL Plt Count (182-369) K/mm3 MPV (9.4-12.3) fl Neutrophils % (Manual) (40-60) % Band Neutrophils % (0-10) % Lymphocytes % (Manual) (20-40) % Atypical Lymphs % % Monocytes % (Manual) (2-10) % Eosinophils % (Manual) (0.7-5.8) % Basophils % (Manual) (0.1-1.2) Platelet Estimate Plt Morphology Comment Hypochromasia Poikilocytosis Anisocytosis Sodium (136-145) mEq/L Potassium (3.5-5.1) mEq/L Chloride (98-107) mEq/L Carbon Dioxide (21-32) mEq/L Anion Gap (5-15) BUN (7-18) mg/dL Creatinine (0.55-1.02) mg/dL Est Cr Clr Drug Dosing mL/min Estimated GFR (MDRD) (>60) mL/min BUN/Creatinine Ratio (14-18) Glucose (74-106) mg/dL Lactic Acid (0.4-2.0) mmol/L Calcium (8.5-10.1) mg/dL Total Bilirubin (0.2-1.0) mg/dL AST (15-37) U/L ALT (14-59) U/L Alkaline Phosphatase (46-116) U/L Total Protein (6.4-8.2) g/dl Albumin (3.4-5.0) g/dl Globulin gm/dL Albumin/Globulin Ratio (1-2) Urine Color (Yellow) Urine Appearance (Clear) Urine pH (5.0-8.0) Ur Specific [place] (1.005-1.030) Urine Protein (Negative) Urine Glucose (UA) (Negative) Urine Ketones (Negative) Urine Occult Blood (Negative) Urine Nitrite (Negative) Urine Bilirubin (Negative) Urine Urobilinogen (0.2-1.0) Ur Leukocyte Esterase (Negative) Urine RBC (0-5) /hpf Urine WBC (0-5) /hpf Ur Epithelial Cells (0-5) /hpf Urine Bacteria (FEW) /hpf Urine Mucus (FEW) /hpf Urine HCG, Qual (NEGATIVE) Urine Opiates Screen Presumptive positive H (FKLVLS=669) Ur Buprenorphine Scrn Negative (CUTOFF=10) Ur Oxycodone Screen Negative (YXC6HC=305) Urine Methadone Screen Negative (MBCSFF=087) Ur Propoxyphene Screen Negative (TXYBNZ=888) Ur Barbiturates Screen Negative (BNCGSN=508) Ur Tricyclics Screen Negative (FIHCLH=625) Ur Phencyclidine Scrn Negative (CUTOFF=25) Ur Amphetamine Screen Presumptive positive H (UADDAK=894) U Methamphetamines Scrn Presumptive positive H (TLDLSB=216) U Benzodiazepines Scrn Presumptive positive H (PCDZIX=188) U Cocaine Metab Screen Negative (FLHXFM=739) U Marijuana (THC) Screen Negative (CUTOFF=50) Ethyl Alcohol (0.00) gm% Meds: Medications Discontinued Medications Generic Name Dose Route Start Last Admin Trade Name Freq PRN Reason Stop Dose Admin Hydromorphone HCl 0.5 mg 09/04/19 01:53 09/04/19 02:40 Dilaudid IVPUSH 09/04/19 01:54 0.5 mg ONETIME ONE Administration - Re-Assessments/Exams Free Text/Narrative Re-Assessment/Exam: 09/04/19 04:59 Patient signed out AGAINST MEDICAL ADVICE. I recommended the patient be admitted to the hospital and she was insistent on going home first. I informed her she could not go home with the IV in place. I think the patient needs to be admitted she's failed outpatient therapy with coming in daily for IM shots of Rocephin. She says she needs to go home and get her purse is in order in clean up some stuff before she comes back to the hospital I advised having her friend take care of this and she stay in the hospital she refused. I discussed the patient's methamphetamine that showed up in her urine she says she had a drink with friend that put it there. I have multiple concerns about this patient getting proper care in getting this illness resolved that have explained with her first of all I have to question the reliability the whole situation she was started on on outpatient Rocephin but missed yesterday's dose. Upon arrival to the emergency room today she very much looked and acted like she was under the influence of stimulant methamphetamine shows up in her urine. I have reviewed her CAT scan from the she has no evidence of stone however has diminished contrast going to the right kidney suggestive of poor renal perfusion on that side and this is the symptomatic side she's got significant soft tissue changes consistent with bilateral around the kidney. And I believe the patient needs to be admitted for reliable dosing of 2 antibiotics to treat her pyelonephritis and her bacteremia. The patient assures us she'll return shortly she is been informed in no uncertain terms she's getting need to recheck back in through the emergency room and some of the workup she's already received may need to be repeated. Also brought up with the patient, some insurance carriers do not cover the cost of the care when the patient signs out AGAINST MEDICAL ADVICE. Departure - Departure Time of Disposition: 05:05 Disposition: Against Medical Advice 07 Clinical Impression: Pyelonephritis, Bacteremia due to Gram-negative bacteria, Methamphetamine abuse - Discharge Information Referrals: PCP,None [Primary Care Provider] - Forms: ED Department Discharge - My Orders Last 24 Hours: My Active Orders 09/04/19 01:19 Blood Culture x2 Reflex Set [OM.PC] Stat 09/04/19 02:00 CULTURE BLOOD [BC] Stat 09/04/19 02:30 CULTURE BLOOD [BC] Stat - Assessment/Plan Last 24 Hours: My Active Orders 09/04/19 01:19 Blood Culture x2 Reflex Set [OM.PC] Stat 09/04/19 02:00 CULTURE BLOOD [BC] Stat 09/04/19 02:30 CULTURE BLOOD [BC] Stat
[2019-09-04] MEDS ORDERED: HYDROmorphone 0.5 MG/0.5 ML Syringe IVPUSH ONE (01:53)
== END 2019-09-04 05:00 | disposition left against medical advice (07) ==
LOC: JD.ED 00:53
DX: N12 Tubulo-interstitial nephritis, not specified as acute or chronic (principal); B96.89 Other specified bacterial agents as the cause of diseases classified elsewhere; R78.81 Bacteremia; F15.10 Other stimulant abuse, uncomplicated; F17.210 Nicotine dependence, cigarettes, uncomplicated
CPT/HCPCS: 36415; 80053; 80306; 80320; 81001; 81025; 83605; 85007; 85027; 87040; 96374; 99283; J1170; 99284; G0480